=== PATIENT | female | born 1985 | race American Indian/Alaskan Native ===

== ENCOUNTER 2017-08-16 03:28 | Emergency (ER) | payer SELFPAY ==
[2017-08-16 03:34] VITALS: BP 130/79
[2017-08-16] MEDS ORDERED: TYLENOL PO ONE (04:00)
[2017-08-16] MEDS ORDERED: TYLENOL ONE (04:01)
[2017-08-16 04:32] LABS: Basophils # (Auto) 0.1 K/mm3 (0.0-0.1); Basophils % (Auto) 0.7 % (0.0-1.8); Eosinophils # (Auto) 0.2 K/mm3 (0.0-0.4); Eosinophils % (Auto) 1.4 % (0.0-4.3); Hematocrit 32.3 % (30.3-42.9); Hemoglobin 10.9 gm/dl (10.1-14.3); Lymphocytes # (Auto) 1.5 K/mm3 (1.2-5.4); Lymphocytes % (Auto) 12.3 % (13.4-35.0); Mean Corpuscular HGB Conc 34 % (30-34); Mean Corpuscular Hemoglobin 29 pg (28-32); Mean Corpuscular Volume 86 fl (79-97); Monocytes % (Auto) 8.1 % (0.0-7.3); Platelet Count 350 K/mm3 (140-440); Red Blood Count 3.74 M/mm3 (3.65-5.03); Red Cell Distribution Width 14.3 % (13.2-15.2)
[2017-08-16 04:55] LABS: Alanine Aminotransferase 97 units/L (7-56); Albumin 3.9 g/dL (3.9-5); BUN/Creatinine Ratio 15; Blood Urea Nitrogen 9 mg/dL (7-17); Calcium 8.9 mg/dL (8.4-10.2); Hemolysis Index 8
== END 2017-08-16 04:30 | disposition left against medical advice (07) ==
LOC: ED 03:28
DX: R10.9 Unspecified abdominal pain (principal); Z53.21 Procedure and treatment not carried out due to patient leaving prior to being seen by health care provider
CPT/HCPCS: 36415; 80053; 85025

== ENCOUNTER 2019-06-05 19:01 | Emergency (ER) | payer SELFPAY ==
[2019-06-05 19:17] VITALS: BP 127/88
[2019-06-05] MEDS ORDERED: diphenhydrAMINE 25 MG CAP PO ONE ×2 (20:09→20:11)
--- NOTE | 2019-06-05 20:09 | Event Note ---
ED Screening Note Date of service: 06/05/19 Time: 20:06 ED Screening Note: 34 y o female presents with allergic reaction tonight with lip angioedema redness to face , neck arms and hands states itching really bad This initial assessment/diagnostic orders/clinical plan/treatment(s) is/are subject to change based on patients health status, clinical progression and re- assessment by fellow clinical providers in the ED. Further treatment and workup at subsequent clinical providers discretion. Patient/guardian urged not to elope from the ED as their condition may be serious if not clinically assessed and managed. Initial orders include: benadryl in triage 50mg decadron IM or IV IVF? acc eval
[2019-06-06] MEDS ORDERED: dexAMETHasone 4 MG/ML VIAL IM ONE (00:35)
--- NOTE | 2019-06-06 00:40 | Emergency Department Report ---
ED Rash HPI - HPI Chief Complaint: Skin Rash Stated Complaint: ALLERGIC REACTION Time Seen by Provider: 06/06/19 00:35 Duration: Today Location: Head, Neck, Upper Extremities Suspected Cause: Food Rash Symptoms: Yes Itching, Yes Tongue/Oral Swelling, No Facial Swelling, No Breathing Difficulties, No Choking Sensation, No Wheezing/Dyspnea, No Peeling, No Blistering, No Fever, No Lightheaded, No Malaise, No Myalgias Severity: moderate Other History: This is a 34-year-old -[place] female who presents to the emergency room with swelling to lower lip, swelling to left hand, pruritus, and a rash to left side of neck. Patient states she was eating some [employer] artesian bread when she started itching and felt her left lower lip started to swell. Patient states she came directly to the emergency room. ED Review of Systems ROS: Stated complaint: ALLERGIC REACTION Other details as noted in HPI Constitutional: denies: chills, fever ENT: denies: ear pain, throat pain Respiratory: denies: cough, shortness of breath, wheezing Cardiovascular: denies: chest pain, palpitations Gastrointestinal: denies: abdominal pain, nausea, diarrhea Musculoskeletal: joint swelling (Left hand swelling) Skin: rash, pruritus, other (Lower lip swelling). denies: lesions Neurological: denies: headache, weakness, paresthesias Psychiatric: denies: anxiety, depression ED Past Medical Hx - Past Medical History Previous Medical History?: No - Surgical History Past Surgical History?: No - Social History Smoking Status: Never Smoker Substance Use Type: None - Medications Home Medications: Home Medications Medication Instructions Recorded Confirmed Last Taken Type EPINEPHrine [Epipen] 0.3 mg IJ ONCE PRN #1 auto.injct 06/06/19 Unknown Rx hydrOXYzine PAMOATE [Vistaril] 25 mg PO Q6HR PRN #20 capsule 06/06/19 Unknown Rx methylPREDNISolone [Medrol 4MG 4 mg PO DAILY #1 tab.ds.pk 06/06/19 Unknown Rx DOSEPAK (21 tabs)] Rash Exam - Exam General: Vital signs noted. No distress. Alert and acting appropriately. HEENT: No Periorbital Edema, No Conjuctival Injection, No Chemosis, No Perioral Edema, No Tongue Edema, No Uvular Edema (Uvula midline without edema), No Compromised Airway, No Drooling (Left lower lip swelling) Lungs: Yes Good Air Exchange (Normal Breath Sounds), No Wheezes, No Ronchi, No Stridor, No Cough, No Labored Respirations, No Retractions, No Use of Accessory Muscles, No Other Abnormal Lung Sounds Heart: Yes Regular, No Murmur Skin: Yes Maculopapular Rash (Erythematous maculopapular rash to left posterior hand, blanchable), Yes Edema (Left hand), No Urticarial Rash, No Morbilliform rash, No Bulla(e), No Excoriations, No Weeping, No Tenderness, No Erythema, No Encrustations ED Course Vital Signs 06/05/19 06/05/19 19:12 20:06 Temperature 97.9 F 97.9 F Pulse Rate 96 H Respiratory 18 Rate Blood Pressure 127/88 O2 Sat by Pulse 97 Oximetry ED Medical Decision Making - Medical Decision Making This is a 34-year-old female that presents to the emergency room with swelling of lower lip, pruritus, swelling to left hand, and rash to left side of neck. Vitals are stable. Negative respiratory symptoms such as wheezing, respiratory distress, or cardiovascular symptoms. No pharyngeal swelling, uvula midline without swelling. Airway is patent. Left hand and lower lip is swollen and erythematous. Patient denies nausea, vomiting, or diarrhea. There is a erythematous rash to left side of neck. Given dexamethasone 8 mg IM and Benadryl 25 mg p.o. After 2 hours of observation patient reports symptoms im proved. Start EpiPen, Vistaril, and steroids. Discharged home with strict return precautions. Follow-up with primary care doctor in 1 to 2 days. Critical care attestation.: If time is entered above; I have spent that time in minutes in the direct care of this critically ill patient, excluding procedure time. ED Disposition Clinical Impression: Acute anaphylaxis Qualifiers: Encounter type: initial encounter Qualified Code(s): T78.2XXA - Anaphylactic shock, unspecified, initial encounter Disposition: TO HOME OR SELFCARE Is pt being admited?: No Condition: Stable Instructions: Food Allergy (ED), Anaphylaxis (ED) Additional Instructions: Return to the emergency room with worsening symptoms such as difficulty breathing, chest pain, or wheezing. Follow-up with an biomedical engineering technician from the list provided below. I have also provided a list of primary care doctors for you to follow-up with. Prescriptions: EPINEPHrine [Epipen] 0.3 mg IJ ONCE PRN #1 auto.injct PRN Reason: Allergic Reaction methylPREDNISolone [Medrol 4MG DOSEPAK (21 tabs)] 4 mg PO DAILY #1 tab.ds.pk hydrOXYzine PAMOATE [Vistaril] 25 mg PO Q6HR PRN #20 capsule PRN Reason: Itching Referrals: [facility] [Provider Group] - 3-5 Days [facility] [Outside] - 3-5 Days [facility] [Outside] - 3-5 Days [facility] [Outside] - 3-5 Days Forms: Work/School Release Form(ED) Time of Disposition: 00:52
== END 2019-06-06 01:45 | disposition home or self-care (01) ==
LOC: ED 19:01
DX: T78.2XXA Anaphylactic shock, unspecified, initial encounter (principal); Z79.899 Other long term (current) drug therapy
CPT/HCPCS: 96372; 99282; J1100

== ENCOUNTER 2020-06-23 07:34 | Observation (INO) | payer MEDICAID ==
[2020-06-23] MEDS ORDERED: LACTATED RINGERS 1,000 ML IV ONE (08:08)
[2020-06-23 08:10] VITALS: BP 127/77
[2020-06-23 08:23] LABS: Bilirubin,Urine NEG (Negative); Blood,Urine NEG (Negative); Color,Urine Yellow (Yellow); Mucus,Urine FEW /HPF; Protein,Urine <15 mg/dL mg/dL (Negative); Urobilinogen,Urine < 2.0 mg/dL (<2.0)
[2020-06-23] MEDS ORDERED: ACETAMINOPHEN 500 MG TAB PO SCH (09:30)
== END 2020-06-23 10:52 | disposition home or self-care (01) ==
LOC: TRG 07:34 → APU 07:36 → TRG 08:08
PROVIDERS: ADMIT Obstetrics & Gynecology; ATTEND Obstetrics & Gynecology
DX: O62.9 Abnormality of forces of labor, unspecified (principal); Z3A.33 33 weeks gestation of pregnancy
CPT/HCPCS: 59025; 81001; 96365; G0378; J0690; J7120; 96360

== ENCOUNTER 2020-08-02 20:44 | Inpatient (IN) | payer MEDICAID ==
[2020-08-02 22:31] LABS: Amphetamine Screen,Urine Negative; Benzodiazepines Screen,Urine Negative; Cannabinoid Screen,Urine Negative; Cocaine Screen,Urine Negative; Methadone Screen,Urine Negative; Opiate Screen,Urine Negative
[2020-08-02] MEDS ORDERED: ePHEDrine SULFATE 50 MG/1 ML INJ IV PRN (23:34)
[2020-08-02] MEDS ORDERED: AMPICILLIN/NS 2 GM/100 ML 2 GM/100 ML BAG IV ONE (23:34)
[2020-08-02] MEDS ORDERED: LIDOCAINE (2%) 20 MG/1 ML VIAL 20 ML MDV INFILTRATI ONE (23:34)
[2020-08-02] MEDS ORDERED: MINERAL OIL 30 ML ORAL LIQD PO PRN (23:34)
[2020-08-02] MEDS ORDERED: TERBUTALINE 1 MG/1 ML INJ SUB-Q PRN (23:34)
--- NOTE | 2020-08-02 23:40 | History and Physical Report ---
History of Present Illness Date of examination: 08/02/20 Date of admission: 08/02/2020 Chief complaint: Decreased movement. History of present illness: 35 year old female presents with complaint of decreased movement. Patient denies LOF or VB. Reports mild contractions. Patient states she received care at [facility]; records are not available. EDC 08/10/2020. significant for the following: obesity. records have been requested. Past History Past Medical History: other (obesity class 3) Past Surgical History: no surgical history [facility] History: denies: abnormal PAP smear, fibroids, gonorrhea, hepatitis B, hepatitis C, herpes, HIV, syphilis, trichomonas Family/Genetic History: none Social history: no significant social history - Obstetrical History Expected Date of Delivery: 08/10/20 Actual Gestation: 39 Week(s) 0 Day(s) : 2 Para: 1 Hx # Term Pregnancies: 1 Number of Pregnancies: 0 Spontaneous Abortions: 0 Induced : 0 Number of Living Children: 1 Medications and Allergies Allergies Allergy/AdvReac Type Severity Reaction Status Date / Time No Known Allergies Allergy Unverified 08/16/17 03:39 Home Medications Medication Instructions Recorded Confirmed Last Taken Type EPINEPHrine [Epipen] 0.3 mg IJ ONCE PRN #1 auto.injct 06/06/19 Unknown Rx hydrOXYzine PAMOATE [Vistaril] 25 mg PO Q6HR PRN #20 capsule 06/06/19 Unknown Rx methylPREDNISolone [Medrol 4MG 4 mg PO DAILY #1 tab.ds.pk 06/06/19 Unknown Rx DOSEPAK (21 tabs)] Active Meds: Active Medications Ephedrine Sulfate (Ephedrine Sulfate 50 Mg/1 Ml Inj) 10 mg IV Q2M PRN PRN Reason: Hypotension Oxytocin/Sodium Chloride (Pitocin/Ns 30 Unit/500ml) 30 units in 500 mls @ 2 mls/hr IV TITR KARINA; Protocol Lactated Ringer's (Lactated Ringers) 1,000 mls @ 125 mls/hr IV DIRECT KARINA Oxytocin/Sodium Chloride (Pitocin/Ns 30 Unit/500ml) 30 units in 500 mls @ 40 mls/hr IV TITR KARINA; Protocol Ampicillin Sodium (Ampicillin/Ns 2 Gm/100 Ml) 2 gm in 100 mls @ 100 mls/hr IV ONCE ONE; Protocol Stop: 08/03/20 00:33 Ampicillin Sodium (Ampicillin/Ns 1 Gm/50 Ml) 1 gm in 50 mls @ 100 mls/hr IV Q4H KARINA; Protocol Mineral Oil (Mineral Oil 30 Ml Oral Liqd) 30 ml PO QHS PRN PRN Reason: Constipation Terbutaline Sulfate (Terbutaline 1 Mg/1 Ml Inj) 0.25 mg SUB-Q ONCE PRN PRN Reason: Hyperstimulation/Hypertonicity Review of Systems All systems: negative (contractions) - Vital Signs Vital signs: Vital Signs Pulse BP Pulse Ox 108 H 119/80 96 08/02/20 21:09 08/02/20 21:09 08/02/20 21:09 Temp Pulse Resp BP Pulse Ox 98.5 F 92 H 18 119/80 100 08/02/20 21:10 08/02/20 23:29 08/02/20 21:10 08/02/20 21:10 08/02/20 23:29 BPP 8/8. ETHEL 8 cm. - Physical Exam Abdomen: Positive: normal appearance, soft. Negative: distention, tenderness, guarding, rigidity Genitourinary (Female): Positive: normal external genitalia, normal perenium. Negative: perineal/vulvar lesions Vagina: Positive: normal moisture Uterus: Positive: enlarged. Negative: tender Anus/Rectum: Positive: normal perianal skin Extremities: Negative: tenderness - Obstetrical FHR: category 1 Uterine Contraction Monitor Mode: External Cervical Dilatation: 2 Cervical Effacement Percentage: 50 station: -3 Uterine Contraction Pattern: Irregular Uterine Contraction Intensity: Mild Results Result Diagrams: 08/02/20 23:30 All other labs normal. Assessment and Plan A: at 38 6/7 weeks gestation. Decreased movement. No records available. P: Admit. Continuous EFM. Request renatal records. Plan Pitocin augmentation of labor after we receive records. Consulted with Dr. Arteaga re: this patient and she states she is in agreement with POC.
[2020-08-02] MEDS ORDERED: OXYTOCIN DRIP 30 UNITS/500 ML BAG IV SCH (23:45)
--- NOTE | 2020-08-03 00:01 | Ultrasound Report ---
ULTRASOUND OBSTETRIC LIMITED ULTRASOUND BIOPHYSICAL PROFILE INDICATION / CLINICAL INFORMATION: Decreased movements. ETHEL, placental placement and rule out abruption. Clinical Gestational Age (GA): 38.6 weeks.days COMPARISON: None available. FINDINGS: BREATHING MOVEMENT = 2 GROSS BODY MOVEMENT = 2 TONE = 2 QUALITATIVE AMNIOTIC FLUID VOLUME = 2 TOTAL BIOPHYSICAL SCORE = 8/8 HEART RATE (beats per minute): 139 AMNIOTIC FLUID INDEX (cm) = 8.0 (normal = 7-24 cm) PRESENTATION: Cephalic. ADDITIONAL FINDINGS: The placenta is located posteriorly, is grade 1 and is free of the os. There is no evidence of abruption. IMPRESSION: 1. Biophysical Score = 8/8 2. ETHEL measures 8 cm. 3. Posterior placenta without previa or abruption. Signer Name: Jv Muñoz MD Signed: 08/02/2020 11:57 PM Workstation Name: [id number]
[2020-08-03 00:04] LABS: Hematocrit 31.6 % (30.3-42.9); Hemoglobin 10.6 gm/dl (10.1-14.3); Mean Corpuscular HGB Conc 34 % (30-34); Mean Corpuscular Volume 87 fl (79-97); Platelet Count 315 K/mm3 (140-440); Red Blood Count 3.63 M/mm3 (3.65-5.03); Red Cell Distribution Width 15.8 % (13.2-15.2)
[2020-08-03] MEDS: LACTATED RINGERS 1,000 ML IV SCH ×3 (00:47→19:36)
[2020-08-03] MEDS: AMPICILLIN/NS 1 GM/50 ML 1 GM/50 ML BAG IV SCH ×4 (05:22→18:28)
--- NOTE | 2020-08-03 11:19 | Progress Note ---
Assessment and Plan A: IUP @ 39 Weeks Category I Tracing Decreased Movement Maternal Obesity GBS Positive P: Start Pitocin Induction Continue GBS Prophylaxis Subjective - Subjective Date of service: 08/03/20 Patient reports: other (Patient sleeping very well upon arrival) Objective - Vital Signs Vital Signs: Vital Signs - 12hr 08/02/20 08/02/20 08/02/20 23:19 23:24 23:27 Temperature Pulse Rate 91 H 98 H 89 Blood Pressure Blood Pressure [Left] O2 Sat by Pulse 99 99 85 Oximetry 08/02/20 08/03/20 08/03/20 23:29 08:09 08:10 Temperature 98.2 F Pulse Rate 92 H 89 89 Blood Pressure 120/71 Blood Pressure 120/71 [Left] O2 Sat by Pulse 100 Oximetry - Exam Breasts: normal Cardiovascular: Regular rate Lungs: Clear to auscultation, Normal air movement Abdomen: Present: normal appearance, soft Uterus: Present: normal, firm, fundal height above umbilicus FHR: category 1 Uterine Contraction Monitor Mode: External Cervical Dilatation: 3 (intact) Cervical Effacement Percentage: 60 station: -3 Uterine Contraction Pattern: Absent - Labs Labs: Abnormal Labs 08/02/20 23:30 WBC 12.2 H RBC 3.63 L RDW 15.8 H Laboratory Results - last 24 hr 08/02/20 08/02/20 08/02/20 21:55 23:30 23:30 WBC 12.2 H RBC 3.63 L Hgb 10.6 Hct 31.6 MCV 87 MCH 29 MCHC 34 RDW 15.8 H Plt Count 315 Urine Opiates Screen Negative Urine Methadone Screen Negative Ur Barbiturates Screen Negative Ur Phencyclidine Scrn Negative Ur Amphetamines Screen Negative U Benzodiazepines Scrn Negative Urine Cocaine Screen Negative U Marijuana (THC) Screen Negative Drugs of Abuse Note Disclamer Syphilis IgG Antibody Blood Type O POSITIVE Antibody Screen Negative 08/02/20 23:30 WBC RBC Hgb Hct MCV MCH MCHC RDW Plt Count Urine Opiates Screen Urine Methadone Screen Ur Barbiturates Screen Ur Phencyclidine Scrn Ur Amphetamines Screen U Benzodiazepines Scrn Urine Cocaine Screen U Marijuana (THC) Screen Drugs of Abuse Note Syphilis IgG Antibody Nonreactive Blood Type Antibody Screen
[2020-08-03] MEDS: OXYTOCIN DRIP 30 UNITS/500 ML BAG IV SCH ×2 (12:38→19:38)
[2020-08-03] MEDS ORDERED: BUTORPHANOL 2 MG/1 ML INJ IV PRN (17:05)
[2020-08-03] MEDS ORDERED: FLEET ENEMA PR ONE (22:24)
--- NOTE | 2020-08-03 22:25 | Event Note ---
Date: 08/03/20 Pt evaluated now with pitocin at 19mu/min, pelvic /-1 vtx/intact with large fetus by my radha. Will do estimated weight. Also will give fleet enema with rectal vault filled with stool. FHR category I. Ctx every 2-3mins. May have epidural when desired. If fetus estimated to be over 10lbs, recommend alternate route of delivery. All questions encouraged and answered.
[2020-08-03] MEDS ORDERED: ePHEDrine SULFATE 50 MG/1 ML INJ IV PRN (23:25)
[2020-08-03] MEDS ORDERED: NALOXONE 2 MG/2 ML INJ IV PRN (23:25)
--- NOTE | 2020-08-03 23:27 | Anesthesia Consultation ---
Anesthesia Consult and Med Hx Date of service: 08/03/20 - Airway Anesthetic Teeth Evaluation: Poor ROM Head & Neck: Adequate Mental/Hyoid Distance: Adequate Mallampati Class: Class II Intubation Access Assessment: Good - Pulmonary Exam CTA: Yes - Cardiac Exam Cardiac Exam: RRR - Pre-Operative Health Status ASA Pre-Surgery Classification: ASA3 Proposed Anesthetic Plan: Epidural - Pulmonary Hx Smoking: No Hx Asthma: No Hx Respiratory Symptoms: No SOB: No COPD: No Home Oxygen Therapy: No Hx Pneumonia: No Hx Sleep Apnea: No - Cardiovascular System Hx Hypertension: No Hx Coronary Artery Disease: No Hx Heart Attack/AMI: No Hx Angina: No Hx Percutaneous Transluminal Coronary Angioplasty (PTCA): No Hx Cardia Arrhythmia: No Hx Pacemaker: No Hx Internal Defibrillator: No Hx Valvular Heart Disease: No Hx Heart Murmur: No Hx Peripheral Vascular Disease: No - Central Nervous System Hx Neuromuscular Disorder: No Hx Seizures: No CVA: No Hx Back Pain: Yes Hx Psychiatric Problems: No - Gastrointestinal Hx Ulcer: No Hx Gastroesophageal Reflux Disease: Yes - Endocrine Hx Renal Disease: No Hx End Stage Renal Disease: No Hx Cirrhosis: No Hx Liver Disease: No Hx Insulin Dependent Diabetes: No Hx Non-Insulin Dependent Diabetes: No Hx Thyroid Disease: No Hx Hypothyroidism: No Hx Hyperthyroidism: No - Hematic Hx Anemia: Yes (on meds) Hx Sickle Cell Disease: No - Other Systems Hx Alcohol Use: No Hx Substance Use: No Hx Cancer: No Hx Obesity: Yes
[2020-08-03] MEDS ORDERED: fentaNYL-BUPIV 2 MCG/ML-0.125% 200 MCG/100 ML BAG EPIDURAL SCH (23:45)
--- NOTE | 2020-08-03 23:58 | Progress Note ---
Labor Epidural - Labor Epidural Start Time: 23:30 Stop Time: 23:38 Performed by:: FRANNIE CHAKRABORTY Procedure: Patient is requesting a laboring epidural for laboring pain. Patient IDed, H&P reviewed, all questions and concerns were answered, and consent was signed. Timeout was performed at bedside. Patient in sitting position. Sterile prep and drape was performed. [3] ml of 1% lidocaine skin wheal at L[3]- L [4]. 18- gauge Tuohy epidural needle was advanced to loss of resistance with saline technique 7cm. Single dural perforation via 27 guage spinal needle placed through the shaft of Epidural needle. Positive CSF via spinal needle. Negative CSF negative blood via Epidural needle. Epidural catheter advanced to [10] centimeters. [NEGATIVE] Aspiration [NEGATIVE] test dose. Negative Paresthesia. Sterile dressing applied. Patient tolerated procedure.
[2020-08-04] MEDS: LACTATED RINGERS 1,000 ML IV SCH (00:34)
--- NOTE | 2020-08-04 00:55 | Ultrasound Report ---
US OB FOLLOW UP INDICATION / CLINICAL INFORMATION: Estimated weight. COMPARISON: 08/02/20. FINDINGS: There is a single intrauterine in a cephalic presentation with a heart rate of 141 bp m. Clinical dates are 39 weeks. The sonographic gestational age is 38 weeks 6 days. The BPD is 9.7 cm (39 weeks 5 days), head circumference 33.9 cm (39 weeks 0 days), abdominal circumfe rence 34.6 cm (38 weeks 4 days) and femur length 7.4 cm (37 weeks 6 days). The HC/AC ratio is 0.98. T he cephalic index is 86.3. The estimated weight is 3535 g +/- 523 g. IMPRESSION: Estimated weight 3535 +/- 523 g. Signer Name: Jv Muñoz MD Signed: 08/04/2020 12:50 AM Workstation Name: [id number]
[2020-08-04] MEDS: AMPICILLIN/NS 1 GM/50 ML 1 GM/50 ML BAG IV SCH (00:59)
--- NOTE | 2020-08-04 01:30 | Event Note ---
Date: 08/04/20 Pt evaluated after receiving enema and epidural. Pt had large BM, and comfortable. EFW from photographic reproduction technician AROM done with pelvic 7100/-1 O-P pr esentation. Moderate amount of blood tinged fluid seen. IUPC placed. Pitocin now at 12 mu/min. Will plan for vaginal delivery. Continue amp for GBS+.
[2020-08-04] MEDS ORDERED: miSOPROStol 200 MCG TAB ONE (06:51)
[2020-08-04] MEDS ORDERED: METHYLERGONOVINE MALEATE 0.2 MG/ML VIAL IM ONE (06:51)
--- NOTE | 2020-08-04 08:22 | Event Note ---
Date: 08/04/20 Nurse called me earlier at 3:20am for pt complete and I pushed with pt approx 1hr and pt stated she was tired and declined section and requested additional dosing on epidural. Same done and pt allowed to labor down. please see delivery note. FHR category I.
--- NOTE | 2020-08-04 08:27 | Procedure Note ---
OB Delivery Note - Delivery Date of Delivery: 08/04/20 Surgeon: TREVOR DANG Estimated blood loss: other (400cc) - Vaginal Delivery presentation: vertex Delivery position: OA Intrapartum events: prolonged active phase, other(please specify) (COVID 19 positive) Delivery induction: oxytocin Delivery augmentation: rupture of membranes Delivery monitor: external FHT, external uterine, internal uterine Route of delivery: Delivery placenta: spontaneous (Marginal abruption) Delivery cord: nuchal cord Episiotomy: none Delivery laceration: 2nd degree (Thru her previous vaginal laceration scar that is irregularly shaped) Delivery repair: vicryl, chromic Anesthesia: epidural Delivery comments: Protracted labor and pt very uncomfortable and exhausted with station 0. Pt redosed with epidural and then nurse called me with head on the perineum. SAVD done and nuchal cord x1 reduced without difficulty. Emergency light used for NICU assist needed for treatment of baby. 6/7/8 at 1, 5 and 10mins. Umbilical artery gas drawn and given to the nurse who inadvertently left it at the nursing station and did not send to the lab. Spontaneous delivery of placenta with marginal abruption and same sent to lab. perineum repair done with 3-0 vicryl running locked suture and 2-0 chromic subcutaneously with excellent hemostasis. Rockwell cath placed for vaginal swelling more on the left than right and pt taught how to keep area clean and dry. Bimanual exam with massage done until fundus firm and cytotec 800mcg given per rectum. Ancef 2gm IVPB given for contamination of stool during delivery and repair. Mom and baby stable. EBL 400cc. Sponge, lap, needle and instrument counts correct x2 at the end of the repair. - Infant A at 1 minute: 6 at 5 minutes: 7 Gender: Male (APGARs 6/7/8 at 1, 5 and 10mins. Blood stained amniotic fluid)
[2020-08-04] MEDS: IBUPROFEN 600 MG TAB PO SCH (11:36)
[2020-08-04] MEDS ORDERED: PROMETHAZINE 25 MG TAB PO PRN (12:00)
[2020-08-04] MEDS ORDERED: WITCH HAZEL/ GLYCERIN PAD TP PRN (12:00)
[2020-08-04] MEDS ORDERED: diphenhydrAMINE 25 MG CAP PO PRN (12:00)
[2020-08-04] MEDS ORDERED: LANOLIN/ZINC/DIMETHICONE (LANSINOH) 7 GM TP PRN (12:00)
[2020-08-04] MEDS ORDERED: PROMETHAZINE 25 MG RECT SUPP PR PRN (12:00)
[2020-08-04] MEDS ORDERED: OXYTOCIN DRIP 30 UNITS/500 ML BAG IV SCH (12:00)
[2020-08-04] MEDS ORDERED: ONDANSETRON 4 MG/2 ML INJ IV PRN (12:00)
[2020-08-04] MEDS: oxyCODONE /ACETAMINOPHEN 5-325MG TAB PO PRN (15:30)
[2020-08-04] MEDS: DOCUSATE SODIUM 100 MG CAP PO SCH (16:36)
[2020-08-04] MEDS: PRENATAL VIT27-FE FUMARATE-FOLIC ACID VIT TAB PO SCH (16:38)
--- NOTE | 2020-08-04 16:42 | Post Anesthesia Evaluation ---
- Post Anesthesia Evaluation Patient Participated: Yes Airway Patent: Yes Stable Respiratory Function: Yes Nausea/Vomiting: No Temp > 96.8F: Yes Pain Manageable: Yes Adequeate Hydration: Yes Anesthesia Complications: No Block Receding Appropriately: Yes Patient on Ventilator: No
[2020-08-04 20:40] LABS: Hematocrit 27.9 % (30.3-42.9); Hemoglobin 9.3 gm/dl (10.1-14.3)
[2020-08-04] MEDS ORDERED: MAGNESIUM HYDROXIDE (MOM) ORAL LIQD UDC PO PRN (22:00)
[2020-08-05] MEDS: DOCUSATE SODIUM 100 MG CAP PO SCH ×3 (00:30→22:55)
[2020-08-05] MEDS: IBUPROFEN 600 MG TAB PO SCH ×3 (00:30→13:58)
[2020-08-05] MEDS: oxyCODONE /ACETAMINOPHEN 5-325MG TAB PO PRN ×2 (08:59→17:02)
[2020-08-05] MEDS: PRENATAL VIT27-FE FUMARATE-FOLIC ACID VIT TAB PO SCH (09:49)
--- NOTE | 2020-08-05 12:25 | Progress Note ---
Assessment and Plan A: PP Day #1 Asymptomatic Anemia P: Follow Routine Orders Continue PO FeSO4 D/C home in the AM RTO in 6 Weeks Subjective - Subjective Date of service: 08/05/20 Patient reports: appetite normal, voiding normally, pain well controlled, flatus, ambulating normally : doing well, bottle feeding Objective - Vital Signs Latest vital signs: Vital Signs Temp Pulse Resp BP BP Pulse Ox 08/05/20 08:41 98.4 F 84 18 109/61 98 08/05/20 07:17 18 08/05/20 06:34 18 08/05/20 01:30 18 08/05/20 00:30 18 08/05/20 00:00 98.6 F 66 16 118/78 08/04/20 20:59 98.0 F 96 H 18 114/59 96 08/04/20 16:15 94 H 18 114/64 98 Intake and Output 08/04/20 08/05/20 08/05/20 22:59 06:59 14:59 Intake Total 100 960 Balance 100 960 Intake: IV 100 100 ceFAZolin 2 GM In NaCl 0. 100 100 9% 100 ml @ 200 mls/hr IV Q8H [facility] Rx#:[id number] Oral 200 Intake, Free Water 660 Other: Total, Intake Amount 200 # Voids Void 1 - Exam Breasts: Present: normal Cardiovascular: Present: Regular rate Lungs: Present: Clear to auscultation, Normal air movement Abdomen: Present: normal appearance, soft, normal bowel sounds Uterus: Present: normal, firm, fundal height below umbilicus Extremities: Present: edema (+1 bilateral hand edema) - Labs Labs: Abnormal lab results 08/04/20 Range/Units 20:05 Hgb 9.3 L (10.1-14.3) gm/dl Hct 27.9 L (30.3-42.9) %
--- NOTE | 2020-08-05 12:26 | Discharge Summary ---
Providers - Providers Date of Admission: 08/02/20 23:34 Date of discharge: 08/06/20 Attending physician: WASHINGTON SAAB MD Primary care physician: WASHINGTON SAAB MD Hospitalization Reason for admission: induction of labor Delivery: Episiotomy: none Laceration: 2nd degree Other procedures: none complications: none Discharge diagnosis: IUP at term delivered baby: male Condition at discharge: Good Disposition: DC-01 TO HOME OR SELFCARE Plan - Provider Discharge Summary Activity: routine, no sex for 6 weeks, no heavy lifting 4 weeks, no strenuous exercise Diet: routine Instructions: routine Additional instructions: [] Smoking cessation referral if applicable(refer to patient education folder for contact #) [] Refer to [facility]'s [facility] Booklet Call your doctor immediately for: * Fever > 100.5 * Heavy vaginal bleeding ( >1 pad per hour) * Severe persistent headache * Shortness of breath * Reddened, hot, painful area to leg or breast * Drainage or odor from incision. * Keep incision clean and dry at all times and follow doctor's instructions regarding bathing/showering - Follow up plan Follow up: WASHINGTON SAAB MD [Primary Care Provider] - 6 Weeks
[2020-08-05] MEDS ORDERED: BENZOCAINE/MENTHOL 20/0.5% TOP SPRAY 56 GM TP PRN (17:12)
[2020-08-05] MEDS: FERROUS SULFATE 325 MG TAB PO SCH (22:55)
[2020-08-06] MEDS: DOCUSATE SODIUM 100 MG CAP PO SCH (09:18)
[2020-08-06] MEDS: FERROUS SULFATE 325 MG TAB PO SCH (09:18)
[2020-08-06] MEDS: oxyCODONE /ACETAMINOPHEN 5-325MG TAB PO PRN (09:18)
[2020-08-06] MEDS: PRENATAL VIT27-FE FUMARATE-FOLIC ACID VIT TAB PO SCH (09:18)
[2020-08-06 12:20] VITALS: BP 127/69
== END 2020-08-06 13:15 | disposition home or self-care (01) | DRG 774 ==
LOC: TRG 20:44 → APU 20:45 → TRG 23:34 → LD 23:34 → OB 08-04 11:01
PROVIDERS: ADMIT Obstetrics & Gynecology; ATTEND Obstetrics & Gynecology
PROC: 3E0R3BZ Introduction of Anesthetic Agent into Spinal Canal, Percutaneous Approach (ICD-10-PCS; 2020-08-03)
PROC: 00HU33Z Insertion of Infusion Device into Spinal Canal, Percutaneous Approach (ICD-10-PCS; 2020-08-03)
PROC: 10E0XZZ Delivery of Products of Conception, External Approach (ICD-10-PCS; principal; 2020-08-04)
PROC: 0KQM0ZZ Repair Perineum Muscle, Open Approach (ICD-10-PCS; 2020-08-04)
PROC: 10907ZC Drainage of Amniotic Fluid, Therapeutic from Products of Conception, Via Natural or Artificial Opening (ICD-10-PCS; 2020-08-04)
PROC: 10H07YZ Insertion of Other Device into Products of Conception, Via Natural or Artificial Opening (ICD-10-PCS; 2020-08-04)
PROC: 3E033VJ Introduction of Other Hormone into Peripheral Vein, Percutaneous Approach (ICD-10-PCS; 2020-08-04)
DX: O76 Abnormality in fetal heart rate and rhythm complicating labor and delivery (principal); O98.52 Other viral diseases complicating childbirth; U07.1 COVID-19; Z37.0 Single live birth; Z3A.39 39 weeks gestation of pregnancy; O99.214 Obesity complicating childbirth; E66.9 Obesity, unspecified; O99.824 Streptococcus B carrier state complicating childbirth; O99.02 Anemia complicating childbirth; D64.9 Anemia, unspecified; O99.62 Diseases of the digestive system complicating childbirth; K21.9 Gastro-esophageal reflux disease without esophagitis; O45.93 Premature separation of placenta, unspecified, third trimester; O69.81X0 Labor and delivery complicated by cord around neck, without compression, not applicable or unspecified; O70.1 Second degree perineal laceration during delivery
CPT/HCPCS: 36415; 59025; 76815; 76816; 76819; 80307; 85014; 85018; 85027; 86592; 86850; 86900; 86901; 88307; G0378; J0290; J0595; J0690; J2590; J7120; U0003